=== PATIENT | female | born 1990 | race African-American/Black ===

== ENCOUNTER 2018-08-17 11:47 | Emergency (ER) | payer MEDICAID, OTHER ==
[~2018-08-17] VITALS: Ht 172.7 cm; Wt 100.0 kg
[2018-08-17 11:50] VITALS: BP 174/96
== END 2018-08-17 12:00 | disposition left against medical advice (07) ==
LOC: ER 11:47
DX: R10.9 Unspecified abdominal pain (principal); Z53.21 Procedure and treatment not carried out due to patient leaving prior to being seen by health care provider